=== PATIENT | male | born 1950 | race African-American/Black ===

== ENCOUNTER 2016-12-23 07:14 | Day surgery (SDC) | payer BC, SELFPAY ==
--- NOTE | ~2016-12-23 | EGD ---
EGD REPORT [facility] [address] [address] NAME: LISETTE BETANCOURT JR : [birth year] [place] [facility] [place] [id number] AGE: 66 ADM/REG DATE : 12/23/16 MR#: [id number] REPORT SERV DATE: 12/23/16 DICTATED BY: DEIRDRE PLAZA DATE: 12/23/16 REPORT STATUS : Draft TRANSCRIBED BY: [employer] DATE: 12/23/16 [facility] Patient Name: Lisette Betancourt Jr Date of : 1950 Attending MD: DEIRDRE PLAZA, Procedure Date No Time: 12/23/2016 Procedure: Upper EUS Indications: Esophageal squamous cell carcinoma Referring MD: ROLANDO SYKES MD, KRYSTLE LUTHER III, MD, [facility] Medicines: Monitored Anesthesia Care Complications: No immediate complications. Estimated blood loss: None. Procedure: After obtaining informed consent, the endoscope was passed under direct vision. Throughout the procedure, the patient's blood pressure, pulse, and oxygen saturations were monitored continuously. The GIF IT Q160 [id number] was introduced through the mouth, and advanced to the second part of duodenum. After obtaining informed consent, the endoscope was passed under direct vision. Throughout the procedure, the patient's blood pressure, pulse, and oxygen saturations were monitored continuously. The Endoscope was introduced through the mouth, and advanced to the second part of duodenum. Findings: Endoscopic Finding : Localized mild mucosal abnormality characterized by nodularity was found in the upper third of the esophagus. Biopsies were taken with a cold forceps for histology. Verification of patient identification for the specimen was done. Estimated blood loss was minimal. Because of the abnormality in the fundus EMR was not performed. Extrinsic compression/submucosal mass on the stomach was found in the gastric fundus. This was new from prior exam. The exam of the stomach was otherwise normal. The examined duodenum was endoscopically normal. Endosonographic Finding : One malignant lymph node was visualized in the gastrohepatic ligament (level 18). This was protruding into the stomach. It measured 35 mm by 33 mm in maximal cross-sectional diameter. The node was round and hypoechoic. Fine needle aspiration was performed. Color Doppler imaging was utilized prior to needle puncture to confirm a lack of significant vascular structures within the needle path. Six passes were made with the 22 gauge needle. No stylet was used. A preliminary cytologic examination was not performed. Final cytology results are pending. Pancreatic parenchymal abnormalities were noted in the entire pancreas. EGD REPORT [address] [address] NAME: LISETTE BETANCOURT JR : [birth year] [place] [facility] [place]#: [id number] AGE: 66 ADM/REG DATE : 12/23/16 MR#: [id number] REPORT SERV DATE: 12/23/16 DICTATED BY: DEIRDRE PLAZA DATE: 12/23/16 REPORT STATUS : Draft TRANSCRIBED BY: [employer] DATE: 12/23/16 These consisted of lobularity. There was no sign of significant endosonographic abnormality in the common bile duct. An unremarkable gallbladder was identified. Impression: - Nodular mucosa in the esophagus. Biopsied. - Extrinsic compression in the gastric fundus. - Normal examined duodenum. - One malignant lymph node was visualized in the gastrohepatic ligament (level 18). - Pancreatic parenchymal abnormalities consisting of lobularity were noted in the entire pancreas. - There was no sign of significant pathology in the common bile duct. Recommendation: - Return to previous diet. - Continue present medications. - Await cytology results and await path results. - Return to referring physician. Procedure Code(s): --- Professional --- 80992, Esophagogastroduodenoscopy, flexible, transoral; with transendoscopic ultrasound-guided intramural or transmural fine needle aspiration/biopsy(s), (includes endoscopic ultrasound examination limited to the esophagus, stomach or duodenum, and adjacent structures) Diagnosis Code(s): --- Professional --- K22.9, Disease of esophagus, unspecified K31.89, Other diseases of stomach and duodenum I89.9, Noninfective disorder of lymphatic vessels and lymph nodes, unspecified K86.9, Disease of pancreas, unspecified C15.9, Malignant neoplasm of esophagus, unspecified CPT copyright 2013 [employer]. All rights reserved. The codes documented in this report are preliminary and upon truck body repairer review may be revised to meet current compliance requirements. DEIRDRE PLAZA, 12/23/2016 9:21 AM Number of Addenda: 0 Note Initiated On: 12/23/2016 8:44 AM Scope Withdrawal Time 0 hours 0 minutes 0 seconds EGD REPORT [facility] [address] [facility] [place]. [address] NAME: LISETTE BETANCOURT JR : [birth year] [place] [facility] [place] [id number] AGE: 66 ADM/REG DATE : 12/23/16 MR#: [id number] REPORT SERV DATE: 12/23/16 DICTATED BY: DEIRDRE PLAZA DATE: 12/23/16 REPORT STATUS : Draft TRANSCRIBED BY: [employer] DATE: 12/23/16 [facility] [place] [address]
[~2016-12-23 07:14] MED LIST: ASAB PO; ATEN50 PO; CLARIT10 PO; HYDROCHLOROT25 MG PO; MARI2.5 PO; MULTIVIT/MIN PO; NORCO1 TAB PO; NORV10 PO; NORV5 PO; PRAVACHOL40 MG PO; PRILOSEC40 MG PO; REG PO
[2017-06-17] MEDS ORDERED: PRAVACHOL40 MG PO (16:06)
[2017-06-17] MEDS ORDERED: CHEMOTHERAPY IV (16:07)
[2017-06-23] MEDS ORDERED: COREG3 PO (09:53)
[2017-07-17] MEDS ORDERED: REM15 PEG (11:56)
[2017-07-17] MEDS ORDERED: CIP5 PEG (11:56)
[2017-07-17] MEDS ORDERED: FLINTSTONE3 PO (11:57)
== END 2016-12-23 23:59 | disposition home or self-care (01) ==
LOC: DMU 07:14
PROVIDERS: Internal Medicine Gastroenterology
PROC: 0DB68ZX Excision of Stomach, Via Natural or Artificial Opening Endoscopic, Diagnostic (ICD-10-PCS; principal; 2016-12-23 09:00)
DX: C15.3 Malignant neoplasm of upper third of esophagus (principal); C77.2 Secondary and unspecified malignant neoplasm of intra-abdominal lymph nodes; I10 Essential (primary) hypertension; I73.9 Peripheral vascular disease, unspecified; I82.401 Acute embolism and thrombosis of unspecified deep veins of right lower extremity; E78.00 Pure hypercholesterolemia, unspecified; F17.210 Nicotine dependence, cigarettes, uncomplicated; Z85.46 Personal history of malignant neoplasm of prostate; Z91.010 Allergy to peanuts; Z91.018 Allergy to other foods; Z79.899 Other long term (current) drug therapy
CPT/HCPCS: 88173; 88305; C1725

== ENCOUNTER 2017-01-08 10:00 | Day surgery (SDC) | payer MEDICARE, SELFPAY ==
[2017-01-06 18:25] LABS: CALCIUM, SERUM 9.6 MG/DL (8.5-10.4); CHLORIDE, SERUM 104 MMOL/L (96-112); CO2 (CARBON DIOXIDE) 24 MMOL/L (24-34); CREATININE 1.05 MG/DL (0.70-1.30); GFR AFRICAN AMERICAN 85 ML/MIN (>=60); GFR NON AFRICAN AMERICAN 73 ML/MIN (>=60); POTASSIUM, SERUM 4.4 MMOL/L (3.5-5.3); SODIUM, SERUM 140 MMOL/L (135-148)
[2017-01-06 18:27] LABS: BUN (BLOOD UREA NITROGEN) 10 MG/DL (6-23); GLUCOSE, SERUM 163 MG/DL (60-99)
--- NOTE | ~2017-01-08 | OP ---
Record Of Operation [facility] [address] [place]. [address] NAME: LISETTE BETANCOURT JR : [birth year] STATUS : [place] [facility] [place] PAT#: [id number] AGE: 66 ADM/REG DATE : MR#: [id number] REPORT SERV DATE: 01/08/17 DICTATED BY: KRYSTLE LUTHER III DATE: 01/08/17 REPORT STATUS : Draft TRANSCRIBED BY: [employer] DATE: 01/08/17 DATE OF PROCEDURE: 01/08/2017 PREOPERATIVE DIAGNOSIS: Esophageal cancer, with need for subclavian vein Port-A-Cath placement. POSTOPERATIVE DIAGNOSIS: Esophageal cancer, with need for subclavian vein Port-A-Cath placement. PROCEDURE: Left subclavian vein Port-A-Cath placement with fluoroscopy. SURGEON: Krystle Luther M.D. ANESTHESIA: General with intubation. COMPLICATIONS: None. ESTIMATED BLOOD LOSS: Less than 5 mL. SPECIMENS: None. DRAINS: None. LAP AND SPONGE COUNT: Correct x3. BRIEF HISTORY: This 66-year-old male has a history of esophageal cancer, which is being treated with chemotherapy. We were asked by his medical oncologist to place a Port-A-Cath to allow for chronic IV access for chemotherapy. This procedure, the risks, benefits, and alternatives, including not limited to the risk for bleeding, infection, pneumothorax, air embolus, pericardial tamponade, failure of the port to function, infection of the port or subclavian vein thrombosis requiring removal the port, dislodgement of the Port-A-Cath tubing requiring extraction, and unforeseen complications including deep venous thrombosis, pulmonary embolus, myocardial infarction, stroke, pneumonia, and , were fully explained to the patient prior to surgery. His questions were answered. He understood the risks and agreed to surgery as planned. DESCRIPTION OF PROCEDURE: After being properly identified and after discussing the risks of surgery with him again in the preoperative area, the patient was taken to the operating room and placed in the supine position on the operating room table. General anesthesia was administered and he was intubated without difficulty. The upper chest and neck areas were prepped and draped sterilely in the usual fashion. After an appropriate "time-out" per JCAHO standards, an 18-gauge needle was used to identify the right subclavian vein. The vein was identified on the first pass of the needle. The guidewire was passed through the needle and the needle was removed. Fluoroscopy was performed. This showed that the guidewire had entered the internal jugular vein. Under fluoroscopy, several attempts were made to withdraw the guidewire and passed it into the superior vena cava. On each attempt, Record Of Operation [facility] [address] [place] [address] NAME: LISETTE BETANCOURT JR : [birth year] STATUS : PRE [facility] PAT#: [id number] AGE: 66 ADM/REG DATE : MR#: [id number] REPORT SERV DATE: 01/08/17 DICTATED BY: KRYSTLE LUTHER III DATE: 01/08/17 REPORT STATUS : Draft TRANSCRIBED BY: [employer] DATE: 01/08/17 however, the guidewire preferentially entered the internal jugular vein. After several attempts, I felt that it would be wisest to place the Port-A-Cath on the opposite side. The guidewire was removed. The left subclavian vein was then identified with an 18-gauge needle on the first pass of the needle. A guidewire was passed through the needle. The needle was removed. Fluoroscopy was performed, confirming the tip of the guidewire to be in the correct position in the superior vena cava. A small transverse incision was then made at the exit site of the guidewire from the skin. A subcutaneous infraclavicular pocket was made of the appropriate size for the Port-A-Cath housing. The Port-A-Cath housing and tubing were assembled, flushed with a heparin solution, and the tubing cut to the appropriate length. The introducer was then placed over the guidewire. The guidewire and inner dilator were removed. The Port-A-Cath tubing was then passed through the sheath as the sheath was peeled away. This went very smoothly. The Port-A-Cath housing was positioned in the infraclavicular pocket. It was secured in place with 2-0 silk sutures. Repeat fluoroscopy was performed, confirming the tip of the Port-A-Cath tubing to be in the correct position in the superior vena cava. The port was accessed with a Russell needle. It was noted to aspirate blood easily. It was then flushed and noted to flush easily. Hemostasis was assured. The subcutaneous tissue was closed with running 3-0 chromic suture. The skin was closed with running subcuticular 4-0 Monocryl stitch. Incision was injected with 0.5% Marcaine. Dressings were applied. Anesthesia was reversed and the patient was taken to the recovery room in stable condition. He tolerated the procedure well. His family was informed of the results of surgery. The patient will be discharged when stable and comfortable and after the chest x-ray has been cleared per Radiology. His family was advised that he should keep his wound clean and dry for [address] should not drive for two to three days after surgery while using narcotics and that he should resume his usual medications. He was asked to return in two weeks for followup or sooner if any fever, chills, wound drainage, or other problems prior to that time. He was given prescription for Percocet 7.5 one t.i.d., #12, as needed for pain, which he was advised not to use while driving. RHJ/LEONIDASL Krystle Luther III, M.D. / [id number] CC: Jake Spencer III, D.O.
--- NOTE | ~2017-01-08 | PREOPHP ---
PreOp History and Physical [address] [address] NAME: LISETTE BETANCOURT : [birth year] STATUS : PRE [facility] [place] PAT#: [id number] AGE: 66 ADM/REG DATE : MR#: [id number] REPORT SERV DATE: 01/09/17 DICTATED BY: KRYSTLE BOLTON III DATE: 01/06/17 REPORT STATUS : Draft TRANSCRIBED BY: [employer] DATE: 01/06/17 HISTORY OF PRESENT ILLNESS: This 66-year-old male comes to the operating room for subclavian Port-A-Cath placement to allow for chronic IV access for chemotherapy. The patient has a history of esophageal cancer. This was diagnosed in July 2016. The patient has undergone chemotherapy and radiation therapy. We have been asked by his medical oncologist to place a Port-A-Cath. The patient has a squamous cell cancer of the esophagus, T3 N1 M0. He is status post chemotherapy and radiation therapy from May to June of 2015. He recently showed evidence for recurrent or persistent disease and is now being treated again with chemotherapy. PAST MEDICAL HISTORY: 1. History of squamous cell carcinoma of the esophagus as above. He has evidence for metastatic disease with metastatic lymph node and the gastrohepatic ligament protruding into the stomach. 2. Hypertension. 3. Hyperlipidemia. 4. History of prostate cancer. 5. History of COPD. 6. History of tobacco abuse. MEDICATIONS: Hydrochlorothiazide; atenolol; pravastatin; Claritin; amlodipine; Reglan; omeprazole; and hydrochlorothiazide. ALLERGIES: PEANUTS. SOCIAL HISTORY: The patient is . He has a history of tobacco abuse. FAMILY HISTORY: Remarkable for Alzheimer's disease. REVIEW OF SYSTEMS: The patient's 14-point review of systems is otherwise unremarkable. PHYSICAL EXAMINATION: OBJECTIVE PHYSICAL EXAM: GENERAL: This is a male, in no acute distress. He is alert and oriented x3. HEENT: Unremarkable. NEUROLOGIC: Cranial nerves 2 through 12 are normal. LUNGS: Clear. CARDIAC: Normal. ABDOMEN: Soft, nontender. VITAL SIGNS: Blood pressure 89/58, pulse 82, and temperature 98.6. ASSESSMENT: PreOp History and Physical [address] [address] NAME: SOHAIL BETANCOURTLOUIE CONDE : 48 STATUS : PRE [facility]#: [id number] AGE: 66 ADM/REG DATE : MR#: [id number] REPORT SERV DATE: 01/09/17 DICTATED BY: KRYSTLE BOLTON III DATE: 01/06/17 REPORT STATUS : Draft TRANSCRIBED BY: JULIETA DATE: 01/06/17 1. A 66-year-old male with squamous cell carcinoma, unresectable, stage IV, with need for Port-A-Cath placement to allow for chronic IV access for chemotherapy. 2. Chronic obstructive pulmonary disease secondary to tobacco abuse. 3. Hypertension. 4. Tobacco abuse. 5. History of prostate cancer, treated with radiation therapy. PLAN: The patient comes to the operating room now for subclavian vein Port-A-Cath placement. This procedure, the risks, benefits, and alternatives, including not limited to the risk for bleeding, infection, pneumothorax, air embolus, pericardial tamponade, dislodgement of the Port-A-Cath tubing requiring extraction, infection of the port, or subclavian vein thrombosis requiring removal of the port, dislodgement of the Port-A-Cath tubing requiring extraction, and unforeseen complications including deep venous thrombosis, pulmonary embolus, myocardial infarction, stroke, pneumonia, and , have been explained to the patient prior to surgery. His questions have been answered. He understands the risks and agrees to surgery as planned. STEFANI/JULIETA Krystle Bolton III, M.D. / [id number]
[2017-06-17] MEDS ORDERED: PRAVACHOL40 MG PO (16:06)
[2017-06-17] MEDS ORDERED: CHEMOTHERAPY IV (16:07)
[2017-06-23] MEDS ORDERED: COREG3 PO (09:53)
[2017-07-17] MEDS ORDERED: REM15 PEG (11:56)
[2017-07-17] MEDS ORDERED: CIP5 PEG (11:56)
[2017-07-17] MEDS ORDERED: FLINTSTONE3 PO (11:57)
== END 2017-01-08 23:59 | disposition home health service (06) ==
LOC: SDC 10:00
PROVIDERS: Surgery
PROC: B517YZA Fluoroscopy of Left Subclavian Vein using Other Contrast, Guidance (ICD-10-PCS; 2017-01-08)
PROC: 05H633Z Insertion of Infusion Device into Left Subclavian Vein, Percutaneous Approach (ICD-10-PCS; principal; 2017-01-08 12:30)
DX: C15.9 Malignant neoplasm of esophagus, unspecified (principal); I10 Essential (primary) hypertension; E78.5 Hyperlipidemia, unspecified; J44.9 Chronic obstructive pulmonary disease, unspecified; I73.9 Peripheral vascular disease, unspecified; E78.00 Pure hypercholesterolemia, unspecified; Z91.010 Allergy to peanuts; F17.210 Nicotine dependence, cigarettes, uncomplicated; Z85.46 Personal history of malignant neoplasm of prostate; Z88.5 Allergy status to narcotic agent; Z88.8 Allergy status to other drugs, medicaments and biological substances; Z98.890 Other specified postprocedural states
CPT/HCPCS: 71010; 77001; 80048; 93005; A9270-GY; C1751; J0690; J2250; J2270; J3010; Q9967

== ENCOUNTER 2017-04-12 18:31 | Emergency (ER) | payer MEDICARE, SELFPAY ==
[2017-04-12 15:18] LABS: BASOPHILS 0.1 %; BASOPHILS ABSOLUTE 0.01 10/3/uL (0.0-0.16); EOSINOPHILS 0 %; ER CBC TAT 0 Hrs 08 Mins; HEMATOCRIT 37.4 % (40.0-51.0); HEMOGLOBIN 13.2 g/dL (13.6-17.8); IMMATURE GRANULOCYTES 0.2 %; IMMATURE GRANULOCYTES ABSOLUTE 0.02 10/3/uL (0.0-0.11); LYMPHOCYTES 11.2 %; LYMPHOCYTES ABSOLUTE 0.98 10/3/uL (0.67-4.30); MANUAL DIFF NO %; MEAN CORPUS HGB CONC 35.3 g/dL (32.0-36.0); MEAN CORPUSCULAR HEMOGLOB 35.5 pg (26.0-34.0); MEAN CORPUSCULAR VOLUME 100.5 fL (80-100); MEAN PLATELET VOLUME 11.2 fL (9.2-13.0); MONOCYTES 15.4 %; MONOCYTES ABSOLUTE 1.35 10/3/uL (0.21-1.20); NEUTROPHILS 73.1 %; PLATELET COUNT 89 10/3/uL (150-400); RBC DISTRIBUTION WIDTH 19.9 % (12.0-16.0); RED CELL COUNT 3.72 10/6/uL (4.7-6.1); WHITE BLOOD CELLS 8.8 10/3/uL (4.5-10.5)
[2017-04-12 15:19] LABS: ASCORBIC ACID (UR NOT ORDER) NEG (NEG); BILIRUBIN, URINE NEGATIVE (NEG); ER URINALYSIS TAT 0 Hrs 09 Mins; KETONE, URINE NEGATIVE (NEG); LEUKOCYTE ESTERASE(NOT OR NEG (NEG); NITRITE (URINE) NEG (NEG); WBC (NOT ORDERED) (RFLEX) 1 (0-5)
[2017-04-12 15:29] LABS: A/G RATIO 0.8 (0.7-1.9); ALBUMIN 3.5 G/DL (3.5-5.0); ALKALINE PHOSPHATASE 116 U/L (45-117); BUN (BLOOD UREA NITROGEN) 16 MG/DL (6-23); CALCIUM, SERUM 9.6 MG/DL (8.5-10.4); CHLORIDE, SERUM 101 MMOL/L (96-112); CO2 (CARBON DIOXIDE) 21 MMOL/L (24-34); CREATININE 1.84 MG/DL (0.70-1.30); GFR AFRICAN AMERICAN 43 ML/MIN (>=60); GFR NON AFRICAN AMERICAN 37 ML/MIN (>=60); GLOBULIN 4.5 G/DL (2.5-4.1); GLUCOSE, SERUM 163 MG/DL (60-99); SGOT(AST) 23 U/L (5-40); SGPT(ALT) 13 U/L (5-65); SODIUM, SERUM 132 MMOL/L (135-148); TOTAL BILIRUBIN 0.9 MG/DL (0-1.2)
[2017-06-17] MEDS ORDERED: PRAVACHOL40 MG PO (16:06)
[2017-06-17] MEDS ORDERED: CHEMOTHERAPY IV (16:07)
[2017-06-23] MEDS ORDERED: COREG3 PO (09:53)
[2017-07-17] MEDS ORDERED: CIP5 PEG (11:56)
[2017-07-17] MEDS ORDERED: REM15 PEG (11:56)
[2017-07-17] MEDS ORDERED: FLINTSTONE3 PO (11:57)
== END 2017-04-12 18:45 | disposition home or self-care (01) ==
LOC: ER 18:31
PROVIDERS: Emergency Medicine
DX: K59.00 Constipation, unspecified (principal); E87.1 Hypo-osmolality and hyponatremia; D64.9 Anemia, unspecified; C15.9 Malignant neoplasm of esophagus, unspecified; J44.9 Chronic obstructive pulmonary disease, unspecified; I10 Essential (primary) hypertension; F17.200 Nicotine dependence, unspecified, uncomplicated; Z91.010 Allergy to peanuts; Z91.018 Allergy to other foods; Z79.899 Other long term (current) drug therapy
CPT/HCPCS: 74022; 80053; 81001; 83690; 85025; 99284; A9270-GY